=== PATIENT | female | born 1970 | race Caucasian/White ===

== ENCOUNTER 2016-08-24 01:17 | Emergency (ER) | payer OTHER ==
[2016-08-24 02:03] VITALS: BP 127/60
[2016-08-24] MEDS ORDERED: FENTANYL CITRATE INJ/PF 100 MCG/2 ML AMPUL IV ONE (02:36)
[2016-08-24] MEDS ORDERED: ONDANSETRON HCL INJ/PF 4 MG/2 ML SDV IV ONE (02:36)
--- NOTE | 2016-08-24 02:39 | ER Document Report ---
ED General - General Chief Complaint: Abdominal Pain Stated Complaint: VOMITING Time Seen by Provider: 08/24/16 02:30 Notes: Patient is a 46-year-old female who presents for recurrent right upper quadrant abdominal pain. Patient says that she has had several episodes since May 03 this year. She says they usually occur at night. It did not occur directly after eating. Pain is always right upper quadrant and she feels nauseous. She sometimes vomits. Tonight she had pizza at 6:30 PM. She woke up tonight with the pain and did vomit once. She has seen [facility] ER. She says she has had blood work and ultrasound performed. She also saw her primary care doctor. Her primary care doctor told her that if she has the pain to come to the ER for a CT scan and HIDA scan. Patient says that her primary care doctor is not referred her to a surgeon and has not arranged for the HIDA scan herself. TRAVEL OUTSIDE OF THE [place] IN LAST 30 DAYS: No - Related Data Allergies/Adverse Reactions: No Known Allergies Allergy (Unverified 08/24/16 03:02) Past Medical History - Social History Smoking Status: Unknown if Ever Smoked Frequency of alcohol use: None Drug Abuse: None Family History: Reviewed & Not Pertinent Patient has suicidal ideation: No Patient has homicidal ideation: No Renal/ Medical History: Denies: Hx Peritoneal Dialysis Past Surgical History: Reports: Hx Section, Hx Tubal Ligation - Immunizations Hx Diphtheria, Pertussis, Tetanus Vaccination: Yes Review of Systems - Review of Systems Notes: My Normal Review Basic REVIEW OF SYSTEMS: CONSTITUTIONAL : Denies fever, chills, or sweats. Denies recent illness. CARDIOVASCULAR: Denies chest pain. RESPIRATORY: Denies cough, cold, or chest congestion. Denies shortness of breath, difficulty breathing, or wheezing. GASTROINTESTINAL: RUQ abdominal pain. Vomiting. Denies constipation. Last BM : GENITOURINARY: Denies difficulty urinating, painful urination, burning, frequency, or blood in urine. MUSCULOSKELETAL: Denies neck or back pain or joint pain or swelling. SKIN: Denies rash or skin lesions. NEUROLOGICAL: Denies altered mental status or loss of consciousness. Denies headache. Denies weakness or paralysis or loss of use of either side. Denies problems with gait or speech. Denies sensory or motor loss. ALL OTHER SYSTEMS REVIEWED AND NEGATIVE. Physical Exam - Vital signs Vitals: Temp Pulse Resp BP Pulse Ox 97.4 F 77 18 127/60 H 98 08/24/16 01:59 08/24/16 01:59 08/24/16 01:59 08/24/16 01:59 08/24/16 01:59 - Notes Notes: General Appearance: Well nourished, alert, cooperative, no acute distress, moderate obvious discomfort. Vitals: reviewed, See vital signs table. Head: no swelling or tenderness to the head Eyes: PERRL, EOMI, Conjuctiva clear Mouth: No decreasd moisture Neck: Supple, no neck tenderness, No thyromegaly Lungs: No wheezing, No rales, No rhonci, No accessory muscle use, good air exchange bilaterally. Heart: Normal rate, Regular rythm, No murmur, no rub Abdomen: Normal BS, soft, No rigidity, mild to moderate right upper quadrant abdominal tenderness to palpation, No guarding, no rebound, no abdominal masses , no organomegaly Extremities: strength 5/5 in all extremities, good pulses in all extremities, no swelling or tenderness in the extremities, no edema. Skin: warm, dry, appropriate color, no rash Neuro: speech clear, oriented x 3, normal affect, responds appropriately to questions. Course - Vital Signs Vital signs: Temp Pulse Resp BP Pulse Ox 97.4 F 77 18 127/60 H 98 08/24/16 01:59 08/24/16 01:59 08/24/16 01:59 08/24/16 01:59 08/24/16 01:59 - Laboratory Result Diagrams: 08/24/16 02:50 08/24/16 02:50 Laboratory results interpreted by me: 08/24/16 02:50 AST 54 H Lipase 388.8 H - Transfer of Care Notes: 08/24/16 06:24 Patient's pain and nausea is improved. Her ultrasound does show gallstones. She has just a very slight liver enzyme elevation and a very slight lipase elevation. There is no gallbladder duct dilatation. I informed the patient and her that she does not have signs of a gallbladder infection at this time; however, she most likely does need to have elective cholecystectomy. I will refer her to the surgical clinic. I talked to her at length about a fat free diet. I did talk about certain foods that will trigger her gallbladder to contract and cause pain. Informed her she should still return to the ER if she has intractable pain, fevers, vomiting, or feels unwell. Patient agrees with plan and will be discharged home. Dictation of this chart was performed using voice recognition software; therefore, there may be some unintended grammatical errors. Discharge - Discharge Clinical Impression: Cholelithiasis Qualifiers: Cholelithiasis location: gallbladder Cholecystitis presence: without cholecystitis Biliary obstruction: without biliary obstruction Qualified Code(s) : K80.20 - Calculus of gallbladder without cholecystitis without obstruction Condition: Good Disposition: HOME, SELF-CARE Additional Instructions: ABDOMINAL PAIN: There are many causes of abdominal pain. Pain can mean a serious problem requiring surgery (such as appendicitis). It can also be an innocent problem that goes away on its own (such as a viral infection). Often, time must pass to determine the cause of pain. The physician does not feel that hospitalization is necessary, at present. Things may change within the next 24 hours. Call the doctor or come back for re- examination if any problems occur, such as: (1) Pain that becomes more severe, steady, or becomes concentrated in one specific area. Also, pain that is more severe with movement or coughing. (2) Vomiting that persists or becomes more frequent. (3) Blood in the vomitus, urine, or bowel movements. Blood in the stool may have a tarry or black appearance. (4) Shaking chills or fever greater than 100 degrees F. (5) The abdomen becomes more distended or swollen. (6) Bowel movements cease. (7) Failure to improve as expected. GALLBLADDER DISEASE: Your evaluation shows evidence of gallbladder disease. The gallbladder is a pouch under the liver which stores bile. Stones, infection, or irritation of the gallbladder cause attacks of pain. Certain foods -- fats in particular -- may provoke attacks. The usual treatment for gallbladder disease is surgical removal of the gallbladder -- called a cholecystectomy. You will be referred to a physician qualified to advise you on the best treatment for your problem. Hospitalization is not necessary. Take clear liquids only until you are painfree. After that, you should stay on a low-fat diet, with frequent SMALL meals. Call the doctor or return at once if you develop severe pain, repeated vomiting, fever, or jaundice (a yellow color in the skin and whites of the eyes) . LOW-FAT DIET: The physician has recommended a low-fat diet. This diet is often used for gallbladder or pancreas problems. Your meals should be high-carbohydrate (potato, apples, noodles, breads, vegetables). Eat fish or skinless chicken (boiled or baked rather than fried) for protein. Beans and peas are good sources of fat-free protein. Soups are usually very low-fat. Don't eat anything fried. Avoid red meats. Avoid most dairy products. Skim milk and non-fat yogurt are OK. Most popular cheeses are very high-fat. Don't add butter or sauces -- use lemon or pepper instead. If you like salads, use one of the new "non-fat" dressings. "Fast Food" is "fat food." There is virtually nothing from a typical fast- food restaurant that you can eat. Fish patties and chicken nuggets are almost always deep-fat fried. "Special Sauces" are mostly fat. ANTINAUSEA MEDICATION: You have been given a medication to suppress nausea and vomiting. This type of medication can be given as a shot, pill, or suppository. It will usually last for many hours. Pills and shots usually last six to eight hours, suppositories last about 12 hours. For the typical illness, only one or two doses of the medication may be necessary. Mild lightheadedness may occur. This type of medicine can cause drowsiness. Do not drive or operate dangerous machinery while under its influence. Do not mix with alcohol. See your doctor at once if you have muscle spasms or tightness, or uncontrollable motions (particularly of the neck, mouth, or jaw). Persistent vomiting or severe lightheadedness should also be evaluated by the physician. FOLLOW-UP CARE: If you have been referred to a physician for follow-up care, call the physician s office for an appointment as you were instructed or within the next two days. If you experience worsening or a significant change in your symptoms, notify the physician immediately or return to the Emergency Department at any time for re-evaluation. Please call Dr. Parekh's office to arrange for an appointment. avoid all fatty foods. Please return to the ER immediately if you have intractable pain, recurrent vomiting, fevers, or feel unwell. Prescriptions: Ondansetron [Zofran Odt 4 mg Tablet] 1 tab PO Q4H PRN #15 tab.rapdis PRN Reason: For Nausea/Vomiting Forms: Return to Work Referrals: ANTONIA MCHUGH NP [Primary Care Provider] - Follow up as needed JACKIE PAREKH MD [ACTIVE STAFF] - Follow up in 3-5 days
[2016-08-24 03:05] LABS: ABSOLUTE EOSINOPHILS # (AUTO) 0.2 10^3/uL (0.0-0.6); ABSOLUTE LYMPHOCYTES (AUTO) 1.6 10^3/uL (0.5-4.7); ABSOLUTE MONOCYTES (AUTO) 0.5 10^3/uL (0.1-1.4); ABSOLUTE NEUT (AUTO) 6.8 10^3/uL (1.7-8.2); BASOPHILS % (AUTO) 0.3 % (0-2); EOSINOPHILS % (AUTO) 1.9 % (0-6); HEMATOCRIT 37.5 % (36.0-47.0); HEMOGLOBIN 12.6 g/dL (12.0-15.5); HGB HCT DIFFERENCE 0.3; MEAN CORPUSCULAR HEMOGLOBIN 29.8 pg (27.0-33.4); MEAN CORPUSCULAR HGB CONC 33.7 g/dL (32.0-36.0); MEAN CORPUSCULAR VOLUME 89 fl (80-97); MONOCYTES % (AUTO) 5.4 % (3-13); RED BLOOD COUNT 4.24 10^6/uL (3.72-5.28); RED CELL DISTRIBUTION WIDTH 13.3 % (11.5-14.0); SEGMENTED NEUTROPHILS % (AUTO) 74.4 % (42-78); WHITE BLOOD COUNT 9.1 10^3/uL (4.0-10.5)
[2016-08-24 03:20] LABS: ALANINE AMINOTRANSFERASE 36 U/L (9-52); ALBUMIN 3.8 g/dL (3.5-5.0); ALKALINE PHOSPHATASE 79 U/L (38-126); ANION GAP 9 (5-19); ASPARTATE AMINO TRANSFERASE 54 U/L (14-36); BILIRUBIN,DIRECT 0.4 mg/dL (0.0-0.4); BILIRUBIN,TOTAL 1.1 mg/dL (0.2-1.3); BLOOD UREA NITROGEN 10 mg/dL (7-20); CALCIUM 9.3 mg/dL (8.4-10.2); CARBON DIOXIDE 28 mmol/L (22-30); CHLORIDE 103 mmol/L (98-107); CREATININE RESULT 0.69 mg/dL (0.52-1.25); GLUCOSE 100 mg/dL (75-110); LIPASE 388.8 U/L (23-300); POTASSIUM 4.3 mmol/L (3.6-5.0)
== END 2016-08-24 05:17 | disposition home or self-care (01) ==
LOC: ER 01:17
DX: K80.20 Calculus of gallbladder without cholecystitis without obstruction (principal); R10.9 Unspecified abdominal pain; R10.11 Right upper quadrant pain
CPT/HCPCS: 99284; 96374; 96375; 36415; 83690; 85025; 80053; 76705; 93976; J3010; J2405

== ENCOUNTER 2016-09-02 05:54 | Inpatient (IN) | payer OTHER ==
[2016-09-02] MEDS ORDERED: FENTANYL CITRATE INJ/PF 100 MCG/2 ML AMPUL IV ONE (07:55)
--- NOTE | 2016-09-02 07:56 | ER Document Report ---
ED GI/ - General Chief Complaint: Abdominal Pain Stated Complaint: ABDOMINAL PAIN Time Seen by Provider: 09/02/16 07:28 Mode of Arrival: Ambulatory Information source: Patient Notes: Patient reports a history of cholelithiasis and states she developed right upper quadrant abdominal pain around 4 this morning. Patient complains of nausea, without any vomiting. Patient does report diarrhea yesterday but none today. Patient denies any urinary symptoms. TRAVEL OUTSIDE OF THE [place] IN LAST 30 DAYS: No - HPI Patient complains to provider of: Abdominal pain, Diarrhea. No: Vomiting Onset: This morning Timing/Duration: Sudden Quality of pain: Sharp Pain Level: 5 Location: RUQ Vaginal bleeding (Compared to normal period): None Associated symptoms: Diarrhea, Nausea. denies: Chest pain, Loss of appetite, Urinary hesitancy, Urinary frequency, Urinary retention, Urinary urgency, Vomiting Exacerbated by: Denies Relieved by: Denies Similar symptoms previously: Yes Recently seen / treated by doctor: No - Related Data Allergies/Adverse Reactions: No Known Allergies Allergy (Unverified 08/24/16 03:02) Home Medications: Current Home Medications Alprazolam [Xanax] 1 mg PO BIDP PRN 09/02/16 [History] Esomeprazole Mag Trihydrate [Nexium] 40 mg PO DAILY 09/02/16 [History] Naltrexone HCl [Revia] 50 mg PO DAILY 09/02/16 [History] Zolpidem Tartrate [Ambien] 10 mg PO QHS 09/02/16 [History] Past Medical History - General Information source: Patient - Social History Smoking Status: Never Smoker Frequency of alcohol use: None Drug Abuse: None Occupation: manager [employer] Lives with: Family Family History: Reviewed & Not Pertinent Patient has suicidal ideation: No Patient has homicidal ideation: No - Medical History Medical History: Negative Renal/ Medical History: Denies: Hx Peritoneal Dialysis Past Surgical History: Reports: Hx Section, Hx Tubal Ligation - Immunizations Hx Diphtheria, Pertussis, Tetanus Vaccination: Yes Review of Systems - Review of Systems Constitutional: No symptoms reported. denies: Fever, Recent illness EENT: No symptoms reported Cardiovascular: No symptoms reported. denies: Chest pain Respiratory: No symptoms reported. denies: Cough, Short of breath Gastrointestinal: Abdominal pain, Diarrhea, Nausea. denies: Vomiting Genitourinary: No symptoms reported. denies: Dysuria, Flank pain Female Genitourinary: No symptoms reported Musculoskeletal: No symptoms reported Skin: No symptoms reported Hematologic/Lymphatic: No symptoms reported Neurological/Psychological: No symptoms reported Physical Exam - Vital signs Vitals: Temp Pulse Resp BP Pulse Ox 97.3 F 94 18 120/86 H 99 09/02/16 05:56 09/02/16 05:56 09/02/16 05:56 09/02/16 05:56 09/02/16 05:56 - General General appearance: Appears well, Alert In distress: None - HEENT Head: Normocephalic, Atraumatic Eyes: Normal Conjunctiva: Normal Nasal: Normal Mouth/Lips: Normal Neck: Normal, Supple - Respiratory Respiratory status: No respiratory distress Chest status: Nontender Breath sounds: Normal. No: Rales, Rhonchi, Stridor, Wheezing Chest palpation: Normal - Cardiovascular Rhythm: Regular Heart sounds: S1 appreciated, S2 appreciated Murmur: No - Abdominal Inspection: Normal Distension: No distension Bowel sounds: Normal Tenderness: Tender - RUQ Organomegaly: No organomegaly - Back Back: Normal, Nontender. No: CVA tenderness - Extremities General upper extremity: Normal inspection, Normal ROM General lower extremity: Normal inspection, Normal ROM - Neurological Neuro grossly intact: Yes Cognition: Normal [place] Coma Scale Eye Opening: Spontaneous Eleni Coma Scale Verbal: Oriented [place] Coma Scale Motor: Obeys Commands [place] Coma Scale Total: 15 - Psychological Associated symptoms: Normal affect, Normal mood - Skin Skin Temperature: Warm Skin Moisture: Dry Skin Color: Normal Course - Re-evaluation Re-evalutation: 09/02/16 07:56 Patient insistent that she has not been on naltrexone for the past week. Patient states she was only prescribed that to help with carb craving for her primary doctor. Patient denies any alcohol or opioid substance abuse. 09/02/16 08:49 pt denies any pain relief after fentanyl, additional medication ordered 09/02/16 10:01 pt reports pain relief after additional pain medication. Consulted with dr Montgomery, test results reviewed, recommends repeating ultrasound at this time given upward trending lipase test result. 09/02/16 12:[address] Quinonez regarding pt presentation and US report. Recommends medical admission for gall stone pancreatitis with surgical consult. consulted with dr Coyle who agrees to accept pt for admission Dr Montgomery updated and agrees with plan of care. 09/02/16 12:49 pt agrees with plan of care, pt c/o mild BRERY and requests medication - Vital Signs Vital signs: Temp Pulse Resp BP Pulse Ox 97.5 F 75 16 106/60 97 09/02/16 12:52 09/02/16 12:52 09/02/16 12:52 09/02/16 12:52 09/02/16 12:52 - Laboratory Result Diagrams: 09/02/16 08:21 09/02/16 08:21 Laboratory results interpreted by me: 09/02/16 09/02/16 08:21 08:21 AST 59 H C-Reactive Protein 17.8 H Cholesterol 223.40 H LDL Cholesterol Direct 137 H Lipase 474.8 H Labs- Entire Visit 09/02/16 09/02/16 09/02/16 07:44 08:21 08:21 WBC 8.2 RBC 4.43 Hgb 13.4 Hct 40.1 MCV 91 MCH 30.3 MCHC 33.5 RDW 13.3 Plt Count 208 Seg Neutrophils % 69.6 Lymphocytes % 23.1 Monocytes % 5.3 Eosinophils % 1.8 Basophils % 0.2 Absolute Neutrophils 5.7 Absolute Lymphocytes 1.9 Absolute Monocytes 0.4 Absolute Eosinophils 0.1 Absolute Basophils 0.0 Sodium 143.3 Potassium 4.5 Chloride 105 Carbon Dioxide 27 Anion Gap 11 BUN 14 Creatinine 0.66 Est GFR ( Amer) > 60 Est GFR (Non-Af Amer) > 60 Glucose 86 Calcium 9.1 Total Bilirubin 0.8 Direct Bilirubin 0.2 Indirect Bilirubin Not Reportable Neonat Total Bilirubin Not Reportable AST 59 H ALT 40 Alkaline Phosphatase 85 Total Protein 6.7 Albumin 3.9 Lipase 474.8 H Urine Color STRAW Urine Appearance CLEAR Urine pH 7.0 Ur Specific [place] 1.009 Urine Protein NEGATIVE Urine Glucose (UA) NEGATIVE Urine Ketones NEGATIVE Urine Blood NEGATIVE Urine Nitrite NEGATIVE Urine Bilirubin NEGATIVE Urine Urobilinogen NEGATIVE Ur Leukocyte Esterase NEGATIVE Squamous Epi Cells Auto <1 Urine Ascorbic Acid NEGATIVE Urine HCG, Qual NEGATIVE - Diagnostic Test Radiology reviewed: Reports reviewed - reviewed previous ED ultrasound report Discharge - Discharge Clinical Impression: Elevated lipase, Hx of gallstones Abdominal pain Qualifiers: Abdominal location: right upper quadrant Qualified Code(s): R10.11 - Right upper quadrant pain Admitting Provider: Hospitalist
[2016-09-02 08:09] LABS: APPEARANCE,URINE CLEAR; BILIRUBIN,URINE NEGATIVE (NEGATIVE); GLUCOSE, URINE NEGATIVE (NEGATIVE); KETONES,URINE NEGATIVE (NEGATIVE); LEUKOCYTE ESTERASE,URINE NEGATIVE (NEGATIVE); NITRITE,URINE NEGATIVE (NEGATIVE); PROTEIN,URINE NEGATIVE (NEGATIVE); URINE SPECIFIC GRAVITY 1.009; UROBILINOGEN,URINE NEGATIVE mg/dL (<2.0)
[2016-09-02 08:32] LABS: ABSOLUTE EOSINOPHILS # (AUTO) 0.1 10^3/uL (0.0-0.6); ABSOLUTE LYMPHOCYTES (AUTO) 1.9 10^3/uL (0.5-4.7); ABSOLUTE MONOCYTES (AUTO) 0.4 10^3/uL (0.1-1.4); ABSOLUTE NEUT (AUTO) 5.7 10^3/uL (1.7-8.2); BASOPHILS % (AUTO) 0.2 % (0-2); EOSINOPHILS % (AUTO) 1.8 % (0-6); HEMATOCRIT 40.1 % (36.0-47.0); HEMOGLOBIN 13.4 g/dL (12.0-15.5); HGB HCT DIFFERENCE 0.1; LYMPHOCYTES % (AUTO) 23.1 % (13-45); MEAN CORPUSCULAR HEMOGLOBIN 30.3 pg (27.0-33.4); MEAN CORPUSCULAR HGB CONC 33.5 g/dL (32.0-36.0); MEAN CORPUSCULAR VOLUME 91 fl (80-97); MONOCYTES % (AUTO) 5.3 % (3-13); RED BLOOD COUNT 4.43 10^6/uL (3.72-5.28); RED CELL DISTRIBUTION WIDTH 13.3 % (11.5-14.0); SEGMENTED NEUTROPHILS % (AUTO) 69.6 % (42-78); WHITE BLOOD COUNT 8.2 10^3/uL (4.0-10.5)
[2016-09-02 08:45] LABS: ALANINE AMINOTRANSFERASE 40 U/L (9-52); ALBUMIN 3.9 g/dL (3.5-5.0); ALKALINE PHOSPHATASE 85 U/L (38-126); ANION GAP 11 (5-19); ASPARTATE AMINO TRANSFERASE 59 U/L (14-36); BILIRUBIN,DIRECT 0.2 mg/dL (0.0-0.4); BILIRUBIN,TOTAL 0.8 mg/dL (0.2-1.3); BLOOD UREA NITROGEN 14 mg/dL (7-20); CALCIUM 9.1 mg/dL (8.4-10.2); CARBON DIOXIDE 27 mmol/L (22-30); CHLORIDE 105 mmol/L (98-107); CREATININE RESULT 0.66 mg/dL (0.52-1.25); GLUCOSE 86 mg/dL (75-110); LIPASE 474.8 U/L (23-300); POTASSIUM 4.5 mmol/L (3.6-5.0); SODIUM 143.3 mmol/L (137-145); TOTAL PROTEIN 6.7 g/dL (6.3-8.2)
[2016-09-02] MEDS ORDERED: HYDROMORPHONE HCL INJ/PF 2 MG/ML AMPULE IV ONE (08:47)
--- NOTE | 2016-09-02 12:24 | RADIOLOGY REPORT (SQ) ---
EXAM DESCRIPTION: U/S ABDOMEN LIMITED W/O DOP COMPLETED DATE/TIME: 09/02/2016 12:03 pm REASON FOR STUDY: RUQ pain, hx cholelithiasis COMPARISON: ABDOMINAL ULTRASOUND 08/24/2016 TECHNIQUE: Dynamic and static grayscale images acquired of the abdomen and recorded on PACS. Additio nal selected color Doppler and spectral images recorded. LIMITATIONS: Midline bowel gas FINDINGS: PANCREAS: Midline pancreas grossly unremarkable LIVER: No masses. Echotexture normal. LIVER VASCULATURE: Normal directional flow of the main portal vein and hepatic veins. GALLBLADDER: Tiny polyps versus stones seen in the dependent portion of the gallbladder on ultrasound 08/24/2016 are no longer identified. Currently, there are no stones, gallbladder wall thickening or pericholecystic fluid. ULTRASOUND-DETECTED ULLOA'S SIGN: Negative. INTRAHEPATIC DUCTS AND COMMON DUCT: 4 mm the lucretia hepatis. Distal most common duct not well seen. INFERIOR VENA CAVA: Normal flow. AORTA: No aneurysm. RIGHT KIDNEY: Normal size. Normal echogenicity. No solid or suspicious masses. No hydronephrosis. No calcifications. PERITONEAL AND RIGHT PLEURAL SPACE: No ascites or effusions. OTHER: No other significant findings. IMPRESSION: Tiny calculi seen in the gallbladder on 08/24/2016 are no longer identified. Common bile duct distally obscured by right upper quadrant bowel gas. Common bile duct at the lucretia hepatis 4 mm in diameter No definite fluid identified around the pancreatic head. Pancreatic body and tail not well seen. TECHNICAL DOCUMENTATION: JOB ID: [id number] [employer]- All Rights Reserved
[2016-09-02] MEDS ORDERED: ACETAMINOPHEN 325 MG TABLET PO ONE (12:49)
[2016-09-02] MEDS ORDERED: ONDANSETRON HCL INJ/PF 4 MG/2 ML SDV IV PRN (13:37)
--- NOTE | 2016-09-02 13:50 | PDOC H&P ---
History of Present Illness Admission Date/PCP: JACKIE MCHUGH MD Patient complains of: RUQ abd pain History of Present Illness: TIFFANIE ZAPATA is a 46 year old female presents from home to the ED with sudden onset of sharp, stabbing RUQ radiating into Rt flank and asct'd with N/V/ D, worse with deep breath and certain positions, no alleviating factors until given dilaudid in the ED and is now pain free and resting comfortably. she was dx'd with cholelithiasis just last week and scheduled to have cholecystectomy but describes this as her "eighth" attack since 04/2016 and occuring more frequently and much more intense with each episode and this in spite of making the necessary dietary and lifestyle changes as instructed by surgery. eval by u/s shows multiple tiny gallstones, today's exam shows no stones, CBD 4mm but GB and pancreas not well visualized. Her LFTs are minimally elevated, lipase in the 400's and we were asked to admit for further evaluatino and management of presumptive gallstone pancreatitis. Past Medical History Cardiac Medical History: Reports: None Pulmonary Medical History: Reports: None Endocrine Medical History: Reports: None Renal/ Medical History: Reports: None GI Medical History: Reports: Gastroesophageal Reflux Disease Past Surgical History Past Surgical History: Reports: Section, Tubal Ligation Social History Lives with: Family Smoking Status: Never Smoker - Advance Directive Resuscitation Status: Full Code Family History Family History: Other - all female members of her family lost their GBs Parental Family History Reviewed: Yes Children Family History Reviewed: Yes Sibling(s) Family History Reviewed.: Yes Medication/Allergy Allergies/Adverse Reactions: No Known Allergies Allergy (Unverified 08/24/16 03:02) Review of Systems Constitutional: PRESENT: weight loss - 50# intentional weight loss since 2015. ABSENT: chills, fever(s), headache(s), weight gain Eyes: ABSENT: visual disturbances Ears: ABSENT: hearing changes Cardiovascular: ABSENT: chest pain, dyspnea on exertion, edema, orthropnea, palpitations Respiratory: ABSENT: cough, hemoptysis Gastrointestinal: PRESENT: as per HPI, abdominal pain, bloating, diarrhea, nausea, vomiting. ABSENT: constipation, hematemesis, hematochezia Genitourinary: ABSENT: dysuria, hematuria Musculoskeletal: ABSENT: joint swelling Integumentary: ABSENT: rash, wounds Neurological: ABSENT: abnormal gait, abnormal speech, confusion, dizziness, focal weakness, syncope Psychiatric: ABSENT: anxiety, depression, homidical ideation, suicidal ideation Endocrine: ABSENT: cold intolerance, heat intolerance, polydipsia, polyuria Hematologic/Lymphatic: ABSENT: easy bleeding, easy bruising Physical Exam Vital Signs: Temp Pulse Resp BP Pulse Ox 97.5 F 75 16 106/60 97 09/02/16 12:52 09/02/16 12:52 09/02/16 12:52 09/02/16 12:52 09/02/16 12:52 Intake & Output 09/01/16 09/02/16 09/03/16 06:59 06:59 06:59 Weight 86.183 kg General appearance: PRESENT: no acute distress, obese, well-developed, well- nourished Head exam: PRESENT: atraumatic, normocephalic Eye exam: PRESENT: EOMI. ABSENT: conjunctival injection Mouth exam: PRESENT: moist, neck supple Neck exam: PRESENT: full ROM. ABSENT: tenderness Respiratory exam: PRESENT: clear to auscultation [id number]. ABSENT: accessory muscle use Cardiovascular exam: PRESENT: RRR. ABSENT: tachycardia Pulses: PRESENT: normal carotid pulses, normal radial pulses GI/Abdominal exam: PRESENT: hypoactive bowel sounds, soft, tenderness - mild tender RUQ with deep palpation only. ABSENT: ascites, distended, guarding, rigid Extremities exam: ABSENT: joint swelling, pedal edema Musculoskeletal exam: PRESENT: full ROM. ABSENT: tenderness Neurological exam: PRESENT: alert, awake, oriented to person, oriented to place , oriented to time, oriented to situation Psychiatric exam: PRESENT: appropriate affect, normal mood Skin exam: PRESENT: warm. ABSENT: dry Results Laboratory Results: 09/02/16 08:21 09/02/16 08:21 09/02/16 09/02/16 09/02/16 07:44 08:21 08:21 WBC 8.2 RBC 4.43 Hgb 13.4 Hct 40.1 MCV 91 MCH 30.3 MCHC 33.5 RDW 13.3 Plt Count 208 Seg Neutrophils % 69.6 Lymphocytes % 23.1 Monocytes % 5.3 Eosinophils % 1.8 Basophils % 0.2 Absolute Neutrophils 5.7 Absolute Lymphocytes 1.9 Absolute Monocytes 0.4 Absolute Eosinophils 0.1 Absolute Basophils 0.0 Sodium 143.3 Potassium 4.5 Chloride 105 Carbon Dioxide 27 Anion Gap 11 BUN 14 Creatinine 0.66 Est GFR ( Amer) > 60 Est GFR (Non-Af Amer) > 60 Glucose 86 Calcium 9.1 Total Bilirubin 0.8 AST 59 H ALT 40 Alkaline Phosphatase 85 Total Protein 6.7 Albumin 3.9 Lipase 474.8 H Urine Color STRAW Urine Appearance CLEAR Urine pH 7.0 Ur Specific [place] 1.009 Urine Protein NEGATIVE Urine Glucose (UA) NEGATIVE Urine Ketones NEGATIVE Urine Blood NEGATIVE Urine Nitrite NEGATIVE Ur Leukocyte Esterase NEGATIVE Impressions: Abdomen Ultrasound 09/02/16 10:00 IMPRESSION: Tiny calculi seen in the gallbladder on 08/24/2016 are no longer identified. Common bile duct distally obscured by right upper quadrant bowel gas. Common bile duct at the lucretia hepatis 4 mm in diameter No definite fluid identified around the pancreatic head. Pancreatic body and tail not well seen. Assessment & Plan - Diagnosis (1) Acute gallstone pancreatitis Is this a current diagnosis for this admission?: YesPlan: worse with cresecendo symptoms. admit for conservative management including IVFs, analgesics and antiemetics, trend CRP as more reliable marker than lipase , trend CMP/CBC. consult riaz for their opinion on timing and urgency of cholecystectomy given her escalating symptoms. I suspect she passed the stone as there is no clear evidence of retained or obstructing stone at present. will ck ct a/p for better detail. we do not have GI available for ERCP at this time, should that become necessary. - Time Time Spent: 50 to 70 Minutes Medications reviewed and adjusted accordingly: Yes Anticipated discharge: Home Within: within 72 hours - Inpatient Certification Medical Necessity: Failure to Improve With Outpatient Therapy, Need Close Monitoring Due to Risk of Patient Decompensation, Need For IV Fluids, Need for Pain Control, Risk of Diagnosis Which Will Require Inpatient Eval/Care/ Monitoring
[2016-09-02 14:09] LABS: C-REACTIVE PROTEIN 17.8 mg/L (<10.0); Direct HDL 53 mg/dL (>40); MAGNESIUM 1.9 mg/dL (1.6-2.3); PHOSPHORUS 3.7 mg/dL (2.5-4.5); TRIGLYCERIDES 132 mg/dL (<150)
[2016-09-02 14:18] LABS: DIRECT LDL 137 mg/dL (<100)
[2016-09-02] MEDS: NORMAL SALINE 1000 ML 1,000 ML IV PRN (15:26)
[2016-09-02] MEDS ORDERED: OXYCODONE HCL IR 5 MG TABLET PO PRN (18:10)
--- NOTE | 2016-09-02 18:37 | RADIOLOGY REPORT (SQ) ---
EXAM DESCRIPTION: CT ABD/PELVIS WITH IV ORAL COMPLETED DATE/TIME: 09/02/2016 5:08 pm REASON FOR STUDY: gallstone pancreatitis COMPARISON: Abdominal ultrasound dated 09/02/2016 TECHNIQUE: CT scan of the abdomen and pelvis performed using helical scanning technique with dynamic intravenous contrast injection and oral contrast. Images reviewed with lung, soft tissue, and bone w indows. Reconstructed coronal and sagittal MPR images reviewed. Delayed images for evaluation of the urinary system also acquired. All images stored on PACS. All CT scanners at this facility use dose modulation, iterative reconstruction, and/or weight based d osing when appropriate to reduce radiation dose to as low as reasonably achievable (ALARA). [facility]: Dose Right [facility]: CareDose [facility]: Dose Right [facility]: Teradose 4D [facility]: Poly Adaptive CONTRAST TYPE AND DOSE: 93mL Isovue 370 RENAL FUNCTION: None required. The patient is less than 50 years old. RADIATION DOSE: 32.91mGy. LIMITATIONS: None. FINDINGS: LOWER CHEST: No significant findings. No nodules or infiltrates. LIVER: Normal size. No masses or dilated ducts. SPLEEN: Normal size. No focal lesions. PANCREAS: No masses. No significant calcifications. No adjacent inflammation or peripancreatic fluid collections. Pancreatic duct not dilated. GALLBLADDER: No identified stones by CT criteria. No inflammatory changes to suggest cholecystitis. ADRENAL GLANDS: No significant masses or asymmetry. RIGHT KIDNEY AND URETER: No solid masses. No significant calcifications. No hydronephrosis or hyd roureter. LEFT KIDNEY AND URETER: No solid masses. No significant calcifications. No hydronephrosis or hydr oureter. AORTA AND VESSELS: No aneurysm. No dissection. Renal arteries, SMA, celiac without stenosis. RETROPERITONEUM: No retroperitoneal adenopathy, hemorrhage or masses. BOWEL AND PERITONEAL CAVITY: No masses or inflammatory changes. No free fluid or peritoneal masses. APPENDIX: Normal. PELVIS: No mass or free fluid. Normal bladder. An area of contrast enhancement is identified in the uterus on the arterial phase images most consistent with a uterine fibroid. Other etiologies cannot be completely excluded. Ultrasound may be of value for further evaluation. ABDOMINAL WALL: No masses. No hernias. BONES: No significant or acute findings. OTHER: No other significant finding. IMPRESSION: NO SIGNIFICANT OR ACUTE FINDING IN THE ABDOMEN OR PELVIS ON CT SCAN WITH IV CONTRAST. TECHNICAL DOCUMENTATION: JOB ID: [id number] Quality ID # [id number]: Final reports with documentation of one or more dose reduction techniques (e.g., Au tomated exposure control, adjustment of the mA and/or kV according to patient size, use of iterative reconstruction technique) 2010 [employer]- All Rights Reserved
--- NOTE | 2016-09-02 20:12 | PDOC CONSULTATION ---
History of Present Illness Admission Date/PCP: 09/02/16 13:30 JACKIE MCHUGH MD Patient complains of: Right upper quadrant abdominal pain History of Present Illness: 46-year-old female with known history of small gallstones with multiple episodes of right upper quadrant abdominal pain over the past several months. Patient notes that the pain lasts for several hours at a time but no longer than a day at a time. She denies any jaundice and she denies any fevers or chills. She has had nausea. Pain is usually related with food intake. Although this last episode began late last night. Currently the pain is almost completely resolved. She denies any alcohol abuse history. She has no known history of pancreatitis in the past. Patient came into the ER was noted with abdominal pain however current ultrasound demonstrated no evidence of gallstones although on recent ultrasonography there were small gallstones seen. Patient was noted with mild elevation of her lipase with normal bilirubin and alkaline phosphatase and minimal elevation of transaminase. She denies any shortness of breath. Past Medical History Cardiac Medical History: Reports: None Pulmonary Medical History: Reports: None Endocrine Medical History: Reports: None Renal/ Medical History: Reports: None GI Medical History: Reports: Gastroesophageal Reflux Disease Past Surgical History Past Surgical History: Reports: Section, Tubal Ligation Social History Lives with: Family Smoking Status: Never Smoker Frequency of Alcohol Use: None Hx Recreational Drug Use: No Hx Prescription Drug Abuse: No - Advance Directive Resuscitation Status: Full Code Family History Family History: Reviewed & Not Pertinent Parental Family History Reviewed: No Children Family History Reviewed: No Sibling(s) Family History Reviewed.: No Medication/Allergy Home Medications: Alprazolam [Xanax] 1 mg PO BIDP PRN 09/02/16 Esomeprazole Mag Trihydrate [Nexium] 40 mg PO DAILY 09/02/16 Naltrexone HCl [Revia] 50 mg PO DAILY 09/02/16 Zolpidem Tartrate [Ambien] 10 mg PO QHS 09/02/16 Allergies/Adverse Reactions: No Known Allergies Allergy (Unverified 08/24/16 03:02) Physical Exam Vital Signs: Temp Pulse Resp BP Pulse Ox 97.5 F 66 20 105/59 L 100 09/02/16 17:26 09/02/16 17:26 09/02/16 17:26 09/02/16 17:26 09/02/16 17:26 General appearance: PRESENT: no acute distress, cooperative Eye exam: PRESENT: conjunctiva pink Neck exam: PRESENT: other - Supple, nontender to palpation. Respiratory exam: PRESENT: clear to auscultation yenifer Cardiovascular exam: PRESENT: RRR GI/Abdominal exam: PRESENT: other - Soft, nondistended, very minimal right upper quadrant and epigastric tenderness. Extremities exam: PRESENT: other - No swelling and no tenderness. Neurological exam: PRESENT: alert, awake, oriented to person, oriented to place , oriented to time, oriented to situation Psychiatric exam: PRESENT: appropriate affect Skin exam: PRESENT: normal color Results Impressions: Abdomen/Pelvis CT 09/02/16 00:00 IMPRESSION: NO SIGNIFICANT OR ACUTE FINDING IN THE ABDOMEN OR PELVIS ON CT SCAN WITH IV CONTRAST. Abdomen Ultrasound 09/02/16 10:00 IMPRESSION: Tiny calculi seen in the gallbladder on 08/24/2016 are no longer identified. Common bile duct distally obscured by right upper quadrant bowel gas. Common bile duct at the lucretia hepatis 4 mm in diameter No definite fluid identified around the pancreatic head. Pancreatic body and tail not well seen. Assessment & Plan - Diagnosis (1) Acute gallstone pancreatitis Is this a current diagnosis for this admission?: YesPlan: Likely passage of gallstones into the common bile duct with subsequent passage into the duodenum and resultant pancreatitis that appears to be mild. Will plan laparoscopic cholecystectomy during this admission, likely tomorrow. I have had a long discussion with the patient the risk and benefits of the procedure including risk of the bile duct injury, intestinal injury, bleeding, infection, mistaken diagnosis, postcholecystectomy diarrhea. Patient understands that there is a risk of conversion to an open procedure as well. Will likely do a cholangiogram as well. Keep patient n.p.o. except for ice chips until surgery.
[2016-09-02] MEDS: PANTOPRAZOLE SODIUM 40 MG VIAL IV SCH (23:39)
[2016-09-02] MEDS: ZOLPIDEM TARTRATE 5 MG TABLET PO PRN (23:39)
[2016-09-02] MEDS: ACETAMINOPHEN 325 MG TABLET PO PRN (23:40)
[2016-09-02] MEDS: MORPHINE SULFATE 10 MG/ML INJ IV PRN (23:42)
[2016-09-03] MEDS: MORPHINE SULFATE 10 MG/ML INJ IV PRN ×2 (04:10→17:42)
[2016-09-03 04:59] LABS: ABSOLUTE EOSINOPHILS # (AUTO) 0.2 10^3/uL (0.0-0.6); ABSOLUTE LYMPHOCYTES (AUTO) 2.8 10^3/uL (0.5-4.7); ABSOLUTE MONOCYTES (AUTO) 0.4 10^3/uL (0.1-1.4); ABSOLUTE NEUT (AUTO) 3.1 10^3/uL (1.7-8.2); BASOPHILS % (AUTO) 0.3 % (0-2); EOSINOPHILS % (AUTO) 2.8 % (0-6); HEMATOCRIT 35.7 % (36.0-47.0); HGB HCT DIFFERENCE 0.3; LYMPHOCYTES % (AUTO) 43.5 % (13-45); MEAN CORPUSCULAR HEMOGLOBIN 29.8 pg (27.0-33.4); MEAN CORPUSCULAR HGB CONC 33.5 g/dL (32.0-36.0); MEAN CORPUSCULAR VOLUME 89 fl (80-97); MONOCYTES % (AUTO) 5.7 % (3-13); RED BLOOD COUNT 4.02 10^6/uL (3.72-5.28); RED CELL DISTRIBUTION WIDTH 13.3 % (11.5-14.0); SEGMENTED NEUTROPHILS % (AUTO) 47.7 % (42-78); WHITE BLOOD COUNT 6.5 10^3/uL (4.0-10.5)
[2016-09-03 05:13] LABS: ALANINE AMINOTRANSFERASE 39 U/L (9-52); ALBUMIN 3.2 g/dL (3.5-5.0); ALKALINE PHOSPHATASE 77 U/L (38-126); ANION GAP 7 (5-19); ASPARTATE AMINO TRANSFERASE 31 U/L (14-36); BILIRUBIN,DIRECT 0.2 mg/dL (0.0-0.4); BILIRUBIN,TOTAL 0.9 mg/dL (0.2-1.3); BLOOD UREA NITROGEN 6 mg/dL (7-20); C-REACTIVE PROTEIN 17.2 mg/L (<10.0); CALCIUM 8.6 mg/dL (8.4-10.2); CARBON DIOXIDE 25 mmol/L (22-30); CHLORIDE 108 mmol/L (98-107); CREATININE RESULT 0.53 mg/dL (0.52-1.25); GLUCOSE 80 mg/dL (75-110); LIPASE 62.3 U/L (23-300); SODIUM 140.4 mmol/L (137-145); TOTAL PROTEIN 6.1 g/dL (6.3-8.2)
[2016-09-03 05:28] LABS: POTASSIUM 3.5 mmol/L (3.6-5.0)
[2016-09-03] MEDS: PANTOPRAZOLE SODIUM 40 MG VIAL IV SCH ×2 (09:07→21:19)
[2016-09-03] MEDS ORDERED: BUPIVACAINE HCL 0.25 % INJ/PF (2.5 MG/1 ML) 30 ML VIAL ONE (09:42)
[2016-09-03] MEDS ORDERED: CEFAZOLIN INJ 1 GM VIAL ONE ×2 (11:10→11:12)
--- NOTE | 2016-09-03 11:25 | PDOC PROGRESS REPORT ---
Subjective Progress Note for:: 09/03/16 Subjective:: reason for visit: f/u gallstone pancreatitis hospital course: TIFFANIE ZAPATA is a 46 year old female presents from home to the ED with sudden onset of sharp, stabbing RUQ radiating into Rt flank and asct'd with N/V/D, worse with deep breath and certain positions, no alleviating factors until given dilaudid in the ED and is now pain free and resting comfortably. she was dx'd with cholelithiasis just last week and scheduled to have cholecystectomy 09/26 but describes this as her "eighth" attack since 2016 and occuring more frequently and much more intense with each episode and this in spite of making the necessary dietary and lifestyle changes as instructed by surgery. eval 08/24 by u/s shows multiple tiny gallstones, today' s exam shows no stones, CBD 4mm but GB and pancreas not well visualized. Her LFTs are minimally elevated, lipase in the 400's and we were asked to admit for further evaluatino and management of presumptive gallstone pancreatitis. Surgery has evaluated and elected to proceed with cholecystectomy Thursday. overall she is improved, pain is well controlled, still nauseous but no more vomiting. ROS: denies fevers/chills, cough with phlegm, chest pain, diarrhea, rash, total 10systems reviewed remaining systems negative Physical Exam Vital Signs: Temp Pulse Resp BP Pulse Ox 97.6 F 71 16 95/60 L 99 09/03/16 08:27 09/03/16 08:27 09/03/16 08:27 09/03/16 08:27 09/03/16 08:27 Intake & Output 09/02/16 09/03/16 09/04/16 06:59 06:59 06:59 Intake Total 0 Output Total 400 Balance -400 Weight 85.1 kg General appearance: PRESENT: no acute distress, obese, well-developed, well- nourished Head exam: PRESENT: atraumatic, normocephalic Eye exam: PRESENT: EOMI. ABSENT: scleral icterus Mouth exam: PRESENT: moist, neck supple Neck exam: ABSENT: tenderness, tracheal deviation Respiratory exam: PRESENT: clear to auscultation yenifer. ABSENT: unlabored Cardiovascular exam: PRESENT: RRR. ABSENT: systolic murmur Pulses: PRESENT: normal radial pulses, normal dorsalis pedis pul GI/Abdominal exam: PRESENT: normal bowel sounds, soft, tenderness - mild epigastric and RUQ with only deep palpation Musculoskeletal exam: PRESENT: ambulatory, full ROM Neurological exam: PRESENT: alert, awake, oriented to person, oriented to place , oriented to time Psychiatric exam: PRESENT: appropriate affect, normal mood Skin exam: PRESENT: warm. ABSENT: dry Results Laboratory Results: 09/03/16 04:22 09/03/16 04:22 09/03/16 09/03/16 04:22 04:22 WBC 6.5 RBC 4.02 Hgb 12.0 Hct 35.7 L MCV 89 MCH 29.8 MCHC 33.5 RDW 13.3 Plt Count 164 Seg Neutrophils % 47.7 Lymphocytes % 43.5 Monocytes % 5.7 Eosinophils % 2.8 Basophils % 0.3 Absolute Neutrophils 3.1 Absolute Lymphocytes 2.8 Absolute Monocytes 0.4 Absolute Eosinophils 0.2 Absolute Basophils 0.0 Sodium 140.4 Potassium 3.5 L D Chloride 108 H Carbon Dioxide 25 Anion Gap 7 BUN 6 L Creatinine 0.53 Est GFR ( Amer) > 60 Est GFR (Non-Af Amer) > 60 Glucose 80 Calcium 8.6 Total Bilirubin 0.9 AST 31 ALT 39 Alkaline Phosphatase 77 C-Reactive Protein 17.2 H Total Protein 6.1 L Albumin 3.2 L Lipase 62.3 Impressions: Abdomen/Pelvis CT 09/02/16 00:00 IMPRESSION: NO SIGNIFICANT OR ACUTE FINDING IN THE ABDOMEN OR PELVIS ON CT SCAN WITH IV CONTRAST. Abdomen Ultrasound 09/02/16 10:00 IMPRESSION: Tiny calculi seen in the gallbladder on 08/24/2016 are no longer identified. Common bile duct distally obscured by right upper quadrant bowel gas. Common bile duct at the lucretia hepatis 4 mm in diameter No definite fluid identified around the pancreatic head. Pancreatic body and tail not well seen. Assessment & Plan - Diagnosis (1) Acute gallstone pancreatitis Is this a current diagnosis for this admission?: YesPlan: improved; it appears the stone has passed into the small bowel but intra- operative cholangiogram will confirm (2) Cholelithiasis Is this a current diagnosis for this admission?: YesPlan: for cholecystectomy later today per my discussion with dr flores covering surgeon - Time Time Spent with patient: 25-34 minutes
[2016-09-03] MEDS ORDERED: FENTANYL CITRATE INJ/PF 100 MCG/2 ML AMPUL ONE ×3 (11:27→13:41)
[2016-09-03] MEDS ORDERED: MIDAZOLAM 2 MG/2 ML INJ ONE (11:28)
[2016-09-03] MEDS ORDERED: MORPHINE SULFATE 10 MG/ML INJ ONE (11:28)
[2016-09-03] MEDS ORDERED: ONDANSETRON HCL INJ/PF 4 MG/2 ML SDV ONE (11:28)
[2016-09-03] MEDS ORDERED: DEXAMETHASONE SOD PHOSPHATE INJ 4 MG/1 ML VIAL ONE (11:28)
[2016-09-03] MEDS ORDERED: PROPOFOL INJ 200 MG/20 ML VIAL IV ONE (11:28)
[2016-09-03] MEDS ORDERED: MORPHINE SULFATE 10 MG/ML INJ IV PRN (13:03)
[2016-09-03] MEDS ORDERED: MEPERIDINE HCL/PF INJ 25 MG/1 ML DISP.SYRIN IV PRN (13:03)
[2016-09-03] MEDS ORDERED: ONDANSETRON HCL INJ/PF 4 MG/2 ML SDV IV PRN (13:03)
[2016-09-03] MEDS ORDERED: DIPHENHYDRAMINE HCL 50 MG/ML VIAL IV PRN (13:03)
[2016-09-03] MEDS ORDERED: FENTANYL CITRATE INJ/PF 100 MCG/2 ML AMPUL IV PRN ×3 (13:03)
[2016-09-03] MEDS ORDERED: HYDROMORPHONE HCL INJ/PF 2 MG/ML AMPULE IV PRN (13:50)
[2016-09-03] MEDS ORDERED: OXYCODONE-ACETAMINOPHEN 5-325 MG TABLET PO PRN (13:51)
[2016-09-03] MEDS ORDERED: ACETAMINOPHEN 100 ML IV ONE (14:00)
[2016-09-03] MEDS: ONDANSETRON HCL INJ/PF 4 MG/2 ML SDV IV PRN (17:43)
[2016-09-03] MEDS: CEFAZOLIN 1 GM/D5W RTU 1 GM/50 ML RTUPB IV SCH (17:44)
[2016-09-03] MEDS: ZOLPIDEM TARTRATE 5 MG TABLET PO PRN (21:19)
[2016-09-03] MEDS: NORMAL SALINE 1000 ML 1,000 ML IV PRN (21:41)
[2016-09-03] MEDS ORDERED: ONDANSETRON HCL INJ/PF 4 MG/2 ML SDV IV ONE (22:00)
[2016-09-04] MEDS: CEFAZOLIN 1 GM/D5W RTU 1 GM/50 ML RTUPB IV SCH ×3 (01:16→17:49)
[2016-09-04 05:05] LABS: HEMATOCRIT 34.8 % (36.0-47.0); HEMOGLOBIN 11.9 g/dL (12.0-15.5); HGB HCT DIFFERENCE 0.9; MEAN CORPUSCULAR HEMOGLOBIN 30.7 pg (27.0-33.4); MEAN CORPUSCULAR HGB CONC 34.2 g/dL (32.0-36.0); MEAN CORPUSCULAR VOLUME 90 fl (80-97); RED BLOOD COUNT 3.88 10^6/uL (3.72-5.28); RED CELL DISTRIBUTION WIDTH 13.2 % (11.5-14.0); WHITE BLOOD COUNT 10.1 10^3/uL (4.0-10.5)
[2016-09-04 05:25] LABS: ALANINE AMINOTRANSFERASE 52 U/L (9-52); ALBUMIN 3.3 g/dL (3.5-5.0); ALKALINE PHOSPHATASE 70 U/L (38-126); ASPARTATE AMINO TRANSFERASE 40 U/L (14-36); BILIRUBIN,DIRECT 0.3 mg/dL (0.0-0.4); BILIRUBIN,TOTAL 0.9 mg/dL (0.2-1.3); LIPASE 37.6 U/L (23-300); TOTAL PROTEIN 6.1 g/dL (6.3-8.2)
[2016-09-04] MEDS: ACETAMINOPHEN 325 MG TABLET PO PRN (06:42)
[2016-09-04] MEDS: NORMAL SALINE 1000 ML 1,000 ML IV PRN (06:43)
[2016-09-04] MEDS: ONDANSETRON HCL INJ/PF 4 MG/2 ML SDV IV PRN (07:15)
[2016-09-04] MEDS ORDERED: PROMETHAZINE HCL 25 MG TABLET PO PRN (09:52)
--- NOTE | 2016-09-04 10:16 | OPERATIVE REPORT E ---
Operative Report NAME: TIFFANIE ZAPATA : 1970 AGE: 46Y DATE OF SURGERY: 09/03/2016 ROOM: 413 PREOPERATIVE DIAGNOSIS: GALLSTONE PANCREATITIS. POSTOPERATIVE DIAGNOSIS: GALLSTONE PANCREATITIS. OPERATION: Laparoscopic Cholecystectomy. SURGEON: DEE DEE CLIFFORD M.D. ANESTHESIA: General. INDICATION: this is a 46-year-old female who complained of abdominal pain. Yesterday she was admitted and noted the elevated lipase. Lipase went down to normal this morning and she remained afebrile and pains had subsided. DESCRIPTION OF PROCEDURE: After adequate general anesthesia, the patient was placed in supine position and the abdomen prepped and draped in the usual sterile fashion. Appropriate timeout was called. Next, an infraumbilical incision was made and the fascia identified and divided and Adilson trocar placed to the fascia into the abdominal cavity. CO2 insufflated to a pressure of 15 mmHg. The trocars were placed 12 mm in the subxiphoid and two 5 mm in the right upper quadrant. The gallbladder was identified and noted to have some adhesions bluntly and lysis was with the use of Harmonic. The gallbladder wall is just slightly thickened by not distended. Cystic duct was then identified, dissected as well as the cystic artery. Cystic duct noted to be just slightly dilated. Clips were placed and divided within the hemoclips. The cystic artery was then clipped and divided with the use of Harmonic shear within her clips and the gallbladder. An intraoperative cholangiogram was then deferred because her liver enzymes and amylase and lipase were all normal and practically asymptomatic. The gallbladder was then dissected off of the liver with the use of Harmonic brandon. The liver bed was dry after completion of procedure. Just a couple of areas with oozing were controlled with the use of Harmonic. Gallbladder was then completely removed and the patient's endobag removed through the umbilical port. No definite palpable stones in the bag were noted. The specimen will be sent to Pathology. The gallbladder bed was then inspected and irrigated and no active bleeding noted. All the trocars were removed and no active bleeding at the trocar sites when visualized with the laparoscope. The Adilson fascial defect was then closed with [id number] suture using 0 Vicryl. Single suture was placed at the xiphoid fascia defect. All the skin incisions were then closed with running subcuticular closure with 4-0 Monocryl. Dermabond dressing was used on top of the incisions. The patient tolerated procedure well and went to recovery in satisfactory condition. Needle, instrument and sponge counts were all correct and estimated blood loss was minimal. DICTATING PHYSICIAN: DEE DEE CLIFFORD M.D. [id number] PHY#: [id number] ID: [id number] JOB#: [id number] ACCT: [id number] cc:DEE DEE CLIFFORD M.D. >
[2016-09-04] MEDS: PANTOPRAZOLE SODIUM 40 MG VIAL IV SCH (10:17)
[2016-09-04] MEDS ORDERED: NORMAL SALINE 1000 ML 1,000 ML IV PRN (10:54)
--- NOTE | 2016-09-04 12:48 | PROGRESS NOTE E ---
Progress Note NAME: TIFFANIE ZAPATA : 1970 AGE: 46Y DATE: 09/04/2016 ROOM: 413 SUBJECTIVE: This is her first postop day post laparoscopic cholecystectomy. She was able to tolerate her clear liquids this morning. OBJECTIVE: Her abdomen is soft, nontender. All her lab is normal with the lipase and LFTs and white count. She remains afebrile. PLAN: Increase her diet and possibly discharge later today from the surgical view point. DICTATING PHYSICIAN: DEE DEE CLIFFORD M.D. [id number] PHY#: [id number] ID: [id number] JOB#: [id number] ACCT: [id number] cc: >
--- NOTE | 2016-09-04 16:03 | PDOC DISCHARGE SUMMARY ---
General - Admit/Disc Date/PCP Admission Date/Primary Care Provider: 09/02/16 13:30 JACKIE MCHUGH MD Discharge Date: 09/04/16 - Discharge Diagnosis (1) Acute gallstone pancreatitis Is this a current diagnosis for this admission?: YesSummary: quickly resolved, seems the stone passed into the duodenum without further complication (2) Cholelithiasis Is this a current diagnosis for this admission?: YesSummary: s/p successful lap choley, see dr flores's notes for details, pathology reveals chronically inflamed gallbladder. - Additional Information Resuscitation Status: Full Code Discharge Diet: As Tolerated - slowly advance as tolerated Discharge Activity: Activity As Tolerated Home Medications: Alprazolam [Xanax] 1 mg PO BIDP PRN 09/02/16 Esomeprazole Mag Trihydrate [Nexium] 40 mg PO DAILY 09/02/16 Naltrexone HCl [Revia] 50 mg PO DAILY 09/02/16 Zolpidem Tartrate [Ambien] 10 mg PO QHS 09/02/16 Oxycodone HCl/Acetaminophen [Percocet 5-325 mg Tablet] 1 tab PO Q4HP PRN #10 tablet 09/04/16 Promethazine HCl [Phenergan 25 mg Tablet] 25 mg PO Q6HP PRN #10 tablet 09/04/16 History of Present Illness Patient complains of: abdominal pain History of Present Illness: TIFFANIE ZAPATA is a 46 year old female presents from home to the ED with sudden onset of sharp, stabbing RUQ radiating into Rt flank and asct'd with N/V/ D, worse with deep breath and certain positions, no alleviating factors until given dilaudid in the ED and is now pain free and resting comfortably. Hospital Course Hospital Course: she was dx'd with cholelithiasis just last week and scheduled to have cholecystectomy 09/26 but describes this as her "eighth" attack since 04/2016 and occuring more frequently and much more intense with each episode and this in spite of making the necessary dietary and lifestyle changes as instructed by surgery. eval 08/24 by u/s shows multiple tiny gallstones, today's exam shows no stones, CBD 4mm but GB and pancreas not well visualized. Her LFTs are minimally elevated, lipase in the 400's and we were asked to admit for further evaluatino and management of presumptive gallstone pancreatitis. Surgery has evaluated and elected to proceed with cholecystectomy Thursday which she tolerated without difficulty or complication. overall she is improved, pain is well controlled, still nauseous but no more vomiting and even that has improved since a large BM early this morning. she is up ambulating, tolerating her liquid diet, hemodynamically stable for her age and condition and is stable for d/c home at this time. she expresses no concerns to me about going home at this time. Rxs provided for short course of analgesics and antiemetics. Physical Exam Vital Signs: Temp Pulse Resp BP Pulse Ox 98.1 F 59 L 16 93/57 L 100 09/04/16 15:30 09/04/16 15:30 09/04/16 15:30 09/04/16 15:30 09/04/16 15:30 Intake & Output 09/03/16 09/04/16 09/05/16 06:59 06:59 06:59 Intake Total 0 3122 Output Total 474 967 6739 Balance -400 2135 -1250 Weight 85.1 kg 89 kg General appearance: PRESENT: no acute distress, obese, well-developed, well- nourished Head exam: PRESENT: atraumatic, normocephalic Eye exam: ABSENT: conjunctival injection, scleral icterus Neck exam: PRESENT: full ROM Respiratory exam: PRESENT: clear to auscultation yenifer. ABSENT: accessory muscle use Cardiovascular exam: PRESENT: RRR. ABSENT: systolic murmur Pulses: PRESENT: normal radial pulses, normal dorsalis pedis pul GI/Abdominal exam: PRESENT: normal bowel sounds, soft, tenderness - appropriate tenderness i nthe area of the trochar sites Musculoskeletal exam: PRESENT: ambulatory, full ROM Neurological exam: PRESENT: alert, awake, oriented to person, oriented to place , oriented to time, oriented to situation Psychiatric exam: PRESENT: appropriate affect, normal mood Skin exam: PRESENT: warm. ABSENT: dry Results Laboratory Results: 09/04/16 04:31 09/03/16 04:22 09/04/16 09/04/16 04:31 04:31 WBC 10.1 RBC 3.88 Hgb 11.9 L Hct 34.8 L MCV 90 MCH 30.7 MCHC 34.2 RDW 13.2 Plt Count 162 Total Bilirubin 0.9 AST 40 H ALT 52 Alkaline Phosphatase 70 Total Protein 6.1 L Albumin 3.3 L Lipase 37.6 Impressions: Abdomen/Pelvis CT 09/02/16 00:00 IMPRESSION: NO SIGNIFICANT OR ACUTE FINDING IN THE ABDOMEN OR PELVIS ON CT SCAN WITH IV CONTRAST. Abdomen Ultrasound 09/02/16 10:00 IMPRESSION: Tiny calculi seen in the gallbladder on 08/24/2016 are no longer identified. Common bile duct distally obscured by right upper quadrant bowel gas. Common bile duct at the lucretia hepatis 4 mm in diameter No definite fluid identified around the pancreatic head. Pancreatic body and tail not well seen. Qualifiers PATEINT BEING DISCHARGED WITH ANY OF THE FOLLOWING DIAGNOSIS?: No VTE patient discharged on overlapping Therapy?: No Reason(s) for not prescribing Overlap Therapy:: Not indicated Plan Discharge Plan: d/c home, f/u with PCP in one week for routine hosp f/u; f/u surgery as instructed. return to the ED for high fever, worsening N/V, bleeding, redness/ pus at surgery sites Time Spent: Greater than 30 Minutes
[2016-09-04 16:41] VITALS: BP 105/66
== END 2016-09-04 17:54 | disposition home health service (06) | DRG 418 ==
LOC: ER 05:54 → EH 13:30 → UNDOADMIN 14:00 → EH 14:00 → 4N 17:35
PROVIDERS: ADMIT Family Medicine; ATTEND Family Medicine
PROC: 0FT44ZZ Resection of Gallbladder, Percutaneous Endoscopic Approach (ICD-10-PCS; principal; 2016-09-03 11:30)
DX: K85.10 Biliary acute pancreatitis without necrosis or infection (principal); K80.12 Calculus of gallbladder with acute and chronic cholecystitis without obstruction; K21.9 Gastro-esophageal reflux disease without esophagitis; Z79.899 Other long term (current) drug therapy
CPT/HCPCS: 36415; 74177; 76705; 790; 80053; 80061; 80076; 81001; 81025; 83690; 83735; 84100; 85025; 85027; 85730; 86140; 88304; 96374; 96375; 99285; J0131; J0690; J1100; J1170; J2250; J2270; J2405; J2704; J3010; J3490; J7030; S0164

== ENCOUNTER 2017-09-10 08:31 | Emergency (ER) | payer BC, OTHER ==
[2017-09-10 08:37] VITALS: BP 114/80
[2017-09-10 09:43] LABS: ABSOLUTE EOSINOPHILS # (AUTO) 0.1 10^3/uL (0.0-0.6); ABSOLUTE LYMPHOCYTES (AUTO) 2.1 10^3/uL (0.5-4.7); ABSOLUTE MONOCYTES (AUTO) 0.4 10^3/uL (0.1-1.4); ABSOLUTE NEUT (AUTO) 3.8 10^3/uL (1.7-8.2); BASOPHILS % (AUTO) 0.5 % (0-2); EOSINOPHILS % (AUTO) 1.4 % (0-6); HEMATOCRIT 42.1 % (36.0-47.0); HEMOGLOBIN 14.4 g/dL (12.0-15.5); LYMPHOCYTES % (AUTO) 32.2 % (13-45); MEAN CORPUSCULAR HEMOGLOBIN 30.2 pg (27.0-33.4); MEAN CORPUSCULAR HGB CONC 34.3 g/dL (32.0-36.0); MEAN CORPUSCULAR VOLUME 88 fl (80-97); PLATELET COUNT 214 10^3/uL (150-450); RED BLOOD COUNT 4.78 10^6/uL (3.72-5.28); RED CELL DISTRIBUTION WIDTH 14.3 % (11.5-14.0); SEGMENTED NEUTROPHILS % (AUTO) 58.9 % (42-78); TOTAL CELLS COUNTED % (AUTO) 100 %; WHITE BLOOD COUNT 6.4 10^3/uL (4.0-10.5)
[2017-09-10 09:50] LABS: APPEARANCE,URINE CLEAR; BILIRUBIN,URINE NEGATIVE (NEGATIVE); COLOR,URINE RED; GLUCOSE, URINE NEGATIVE (NEGATIVE); KETONES,URINE 20 mg/dL (NEGATIVE); LEUKOCYTE ESTERASE,URINE NEGATIVE (NEGATIVE); NITRITE,URINE POSITIVE (NEGATIVE); PROTEIN,URINE 100 mg/dL (NEGATIVE)
[2017-09-10 10:01] LABS: ALANINE AMINOTRANSFERASE 21 U/L (9-52); ALBUMIN 4.1 g/dL (3.5-5.0); ALKALINE PHOSPHATASE 73 U/L (38-126); ANION GAP 12 (5-19); ASPARTATE AMINO TRANSFERASE 22 U/L (14-36); BILIRUBIN,TOTAL 1.9 mg/dL (0.2-1.3); BLOOD UREA NITROGEN 5 mg/dL (7-20); CALCIUM 10.2 mg/dL (8.4-10.2); CARBON DIOXIDE 28 mmol/L (22-30); CHLORIDE 105 mmol/L (98-107); GLUCOSE 78 mg/dL (75-110); POTASSIUM 3.9 mmol/L (3.6-5.0); SODIUM 145.1 mmol/L (137-145); TOTAL PROTEIN 7.3 g/dL (6.3-8.2)
[2017-09-10] MEDS ORDERED: NORMAL SALINE 1000 ML 1,000 ML IV ONE (10:16)
--- NOTE | 2017-09-10 10:25 | ER Document Report ---
ED General - General Chief Complaint: Weakness Stated Complaint: WEAKNESS, DIZZY, STOMACH PAIN Time Seen by Provider: 09/10/17 09:47 Notes: Patient is a 47-year-old female with a gastric sleeve May 27 at [facility] by Dr. Veloz who states she has had intermittent epigastric "discomfort" with little radiation to her chest for around 8 days. She states food makes it worse. She denies radiation. She states a few bouts of diarrhea that has been present since the surgery in May. She denies any vomiting or fevers. She denies any other aggravating or relieving factors. She denies any calf pain or leg swelling. She denies any recent trips or travel. TRAVEL OUTSIDE OF THE [place] IN LAST 30 DAYS: No - HPI Onset: Other - See above Onset/Duration: Gradual Quality of pain: Achy Severity: Mild Pain Level: Denies Associated symptoms: Other - See above Exacerbated by: Denies Relieved by: Denies Similar symptoms previously: No Recently seen / treated by doctor: No - Related Data Allergies/Adverse Reactions: No Known Allergies Allergy (Verified 09/10/17 08:32) Past Medical History - General Information source: Patient - Social History Smoking Status: Never Smoker Cigarette use (# per day): No Chew tobacco use (# tins/day): No Smoking Education Provided: No Frequency of alcohol use: None Drug Abuse: None Family History: Reviewed & Not Pertinent Patient has suicidal ideation: No Patient has homicidal ideation: No Renal/ Medical History: Denies: Hx Peritoneal Dialysis GI Medical History: Reports: Hx Gastroesophageal Reflux Disease Past Surgical History: Reports: Hx Abdominal Surgery - gastric sleeve, Hx Section, Hx Cholecystectomy, Hx Tubal Ligation - Immunizations Hx Diphtheria, Pertussis, Tetanus Vaccination: Yes Review of Systems - Review of Systems Constitutional: denies: Fever EENT: denies: Eye discharge, Nose discharge Cardiovascular: denies: Chest pain Respiratory: denies: Short of breath Gastrointestinal: denies: Vomiting Genitourinary: denies: Dysuria Musculoskeletal: denies: Leg swelling Skin: Other - no hives. denies: Rash Neurological/Psychological: Other - no slurred speech -: Yes All other systems reviewed and negative Physical Exam - Vital signs Vitals: Temp Pulse Resp BP Pulse Ox 97.6 F 89 14 114/80 96 09/10/17 08:35 09/10/17 08:35 09/10/17 08:35 09/10/17 08:35 09/10/17 08:35 Notes: Reviewed vital signs and nursing note as charted by RN. CONSTITUTIONAL: Alert and oriented and responds appropriately to questions. Well -appearing; well-nourished HEAD: Normocephalic; atraumatic EYES: Sclerae non-icteric ENT: Normal nose; no rhinorrhea; moist mucous membranes NECK: Supple without meningismus; non-tender CARD: Regular rate and rhythm; no murmurs RESP: Normal chest excursion without splinting or tachypnea; breath sounds clear and equal bilaterally ABD/GI: Normal bowel sounds; non-distended; soft, non-tender to deep palpation currently of all 4 quadrants of the abdomen including the epigastric region BACK: The back appears normal and is non-tender to palpation, there is no CVA tenderness EXT: Normal ROM in all joints; non-tender to palpation; no edema SKIN: Normal color for age and race; warm; no acute lesions noted NEURO: Moves all extremities equally; Motor and sensory function intact PSYCH: The patient's mood and manner are appropriate. Grooming and personal hygiene are appropriate. Course - Re-evaluation Re-evalutation: 09/10/17 10:28 Given the above history and physical examination we will order a lipase, liver panel, basic labs, and EKG and troponin, as well as a CT scan of the abdomen and pelvis. I would like to evaluate for possible pancreatitis, other intra- abdominal pathology, gastric sleeve pathology, or cardiac equivalent. Given the recent gastric sleeve surgery, worse with eating food, without fevers or vomiting, I do believe this could be gastritis or gastric ulcer in nature. 09/10/17 10:40 EKG shows a heart rate of 73, normal sinus rhythm, normal axis, no ST elevation or depression, inverted T waves in leads III, aVF, V2 and V3 09/10/17 12:03 Labs as recorded. Total bilirubin 1.9. Direct is 0. Normal AST ALT, lipase, and alk phos. Normal white blood cell count. GI cocktail has improved the pain. CT scan of the abdomen and pelvis shows no obvious acute findings. Normal troponin. Patient does not have a gallbladder. 09/10/17 12:05 Urinalysis shows a positive nitrite urine. Urine culture has been sent. Rocephin 1 g has been provided. Patient was diagnosed with urinary tract infection 2 days ago. She is currently on Macrobid with urine culture pending at the primary care physician. I will provide the Rocephin with 1 L of fluid. Patient states the pain is much improved. Patient will be discharged home with strict return precautions. - Vital Signs Vital signs: Temp Pulse Resp BP Pulse Ox 97.6 F 89 14 114/80 96 09/10/17 08:35 09/10/17 08:35 09/10/17 08:35 09/10/17 08:35 09/10/17 08:35 - Laboratory Result Diagrams: 09/10/17 09:27 09/10/17 09:27 Laboratory results interpreted by me: 09/10/17 09/10/17 09/10/17 09:27 09:27 09:27 RDW 14.3 H Sodium 145.1 H BUN 5 L Total Bilirubin 1.9 H Urine Protein 100 H Urine Ketones 20 H Urine Nitrite POSITIVE H Urine Urobilinogen 4.0 H Discharge - Discharge Clinical Impression: Epigastric discomfort UTI (urinary tract infection) Qualifiers: Urinary tract infection type: site unspecified Hematuria presence: without hematuria Qualified Code(s): N39.0 - Urinary tract infection, site not specified Disposition: HOME, SELF-CARE Additional Instructions: Come back immediately with any return or worsening of pain, fevers or vomiting, shortness of breath or chest discomfort, or any other acute problems. Please make sure that she follow-up with your primary care physician regarding the urine culture to make sure she is treating appropriately. Please follow-up with your gastroenterology physician for reassessment. You can start taking [id number] Prilosec once daily as we have discussed. Referrals: JACKIE MCHUGH MD [Primary Care Provider] - Follow up as needed
[2017-09-10 10:30] LABS: LIPASE 81.6 U/L (23-300)
[2017-09-10] MEDS ORDERED: METOCLOPRAMIDE HCL ORAL SOLN 10 MG/10 ML UDCUP PO ONE (10:32)
[2017-09-10] MEDS ORDERED: LIDOCAINE 2% VISCOUS SOLN 20 ML UDCUP PO ONE (10:32)
[2017-09-10] MEDS ORDERED: MAG HYDROX/AL HYDROX/SIMETH SUSP 30 ML UDCUP PO ONE (10:32)
--- NOTE | 2017-09-10 11:43 | EKG REPORT ---
SEVERITY:- ABNORMAL ECG - SINUS RHYTHM CONSIDER ANTERIOR INFARCT NONSPECIFIC T ABNORMALITIES, INFERIOR LEADS : Confirmed by: Cecilia Amato MD 10-Sep-2017 11:42:04
--- NOTE | 2017-09-10 11:52 | RADIOLOGY REPORT (SQ) ---
EXAM DESCRIPTION: CT ABD/PELVIS WITH IV ONLY COMPLETED DATE/TIME: 09/10/2017 11:39 am REASON FOR STUDY: 21, gastric sleeve with some mild epigastric pain COMPARISON: 09/02/2016. TECHNIQUE: CT scan of the abdomen and pelvis performed using helical scanning technique with dynamic intravenous contrast injection. No oral contrast. Images reviewed with lung, soft tissue, and bone windows. Reconstructed coronal and sagittal MPR images reviewed. Delayed images for evaluation of the urinary system also acquired. All images stored on PACS. All CT scanners at this facility use dose modulation, iterative reconstruction, and/or weight based d osing when appropriate to reduce radiation dose to as low as reasonably achievable (ALARA). [facility]: Dose Right [facility]: CareDose [facility]: Dose Right [facility]: Teradose 4D [facility]: [employer] CONTRAST TYPE AND DOSE: contrast/concentration: Isovue 370.00 mg/ml; Total Contrast Delivered: 76.0 ml; Total Saline Delivered: 67.0 ml RENAL FUNCTION: BUN 5 creatinine 0.54. RADIATION DOSE: CT Rad equipment meets quality standard of care and radiation dose reduction techniq ues were employed. CTDIvol: 11.7 - 15.3 mGy. DLP: 1481 mGy-cm.. LIMITATIONS: None. FINDINGS: LOWER CHEST: No significant findings. No nodules or infiltrates. LIVER: Normal size. No masses. No dilated ducts. SPLEEN: Normal size. No focal lesions. PANCREAS: No masses. No significant calcifications. No adjacent inflammation or peripancreatic fluid collections. Pancreatic duct not dilated. GALLBLADDER: Surgically absent. ADRENAL GLANDS: No significant masses or asymmetry. RIGHT KIDNEY AND URETER: No solid masses. No significant calcifications. No hydronephrosis or hyd roureter. LEFT KIDNEY AND URETER: No solid masses. No significant calcifications. No hydronephrosis or hydr oureter. AORTA AND VESSELS: No aneurysm. No dissection. Renal arteries, SMA, celiac without stenosis. RETROPERITONEUM: No retroperitoneal adenopathy, hemorrhage or masses. BOWEL AND PERITONEAL CAVITY: No masses or inflammatory changes. No free fluid or peritoneal masses. APPENDIX: Normal. PELVIS: No mass. No free fluid. Normal bladder. ABDOMINAL WALL: No masses. No hernias. BONES: No significant or acute findings. OTHER: No other significant finding. IMPRESSION: NO SIGNIFICANT OR ACUTE FINDING IN THE ABDOMEN OR PELVIS ON CT SCAN WITH IV CONTRAST. TECHNICAL DOCUMENTATION: JOB ID: [id number] Quality ID # [id number]: Final reports with documentation of one or more dose reduction techniques (e.g., Au tomated exposure control, adjustment of the mA and/or kV according to patient size, use of iterative reconstruction technique) 2010 [employer]- All Rights Reserved Reading location - IP/workstation name: [email or web address]
[2017-09-10] MEDS ORDERED: CEFTRIAXONE RTU 1 GM/D5W 50 ML IV ONE (12:05)
== END 2017-09-10 13:58 | disposition home or self-care (01) ==
LOC: ER 08:31
DX: N39.0 Urinary tract infection, site not specified (principal); R10.13 Epigastric pain; R53.1 Weakness; R42 Dizziness and giddiness; R19.7 Diarrhea, unspecified
CPT/HCPCS: 93005; 99285; 96361; 96365; 36415; 83690; 85025; 81025; 80053; 81001; 84484; 74177; 93010; J3490; J7030; J0696

== ENCOUNTER → 2019-03-28 | Outpatient (CLI) | payer BC ==
--- NOTE | 2019-03-28 15:13 | WOMENS IMAGING REPORT ---
EXAM DESCRIPTION: 3D SCREENING MAMMO BILAT COMPLETED DATE/TIME: 03/28/2019 2:52 pm REASON FOR STUDY: ROUTINE SCREENING MAMMOGRAM Z1231 Z12.31 ENCNTR SCREEN MAMMOGRAM FOR MALIGNANT NE OPLASM OF ROSHNI COMPARISON: 2014 EXAM PARAMETERS: Views: Standard craniocaudal and mediolateral oblique views of each breast recorded using digital acquisition and breast tomosynthesis. Read with the assistance of CAD. .[facility] - R2 [employer] Operator Helper Version 9.2 LIMITATIONS: None. FINDINGS: No suspicious masses, suspicious calcifications or architectural distortion. No areas of c oncern. IMPRESSION: NEGATIVE MAMMOGRAM. BIRADS 1. BREAST DENSITY: b. There are scattered areas of fibroglandular density. BIRAD: ASSESSMENT: 1 NEGATIVE RECOMMENDATION: ROUTINE SCREENING Please continue yearly bilateral screening mammography/tomosynthesis in March 2020 COMMENT: The patient has been notified of the results by letter per MQSA requirements. Additional no tification policies are in place for contacting patient with suspicious or incomplete findings. Quality ID #[id number]: The [employer] recommends an annual screening mammogram for women aged 40 years or over. This facility utilizes a reminder system to ensure that all patients receive reminder letters, and/or direct phone calls for appointments. This includes reminders for routine scr eening mammograms, diagnostic mammograms, or other Breast Imaging Interventions when appropriate. Th is patient will be placed in the appropriate reminder system. TECHNICAL DOCUMENTATION: FINDING NUMBER: (1) ASSESSMENT: (1) JOB ID: [id number] [employer]- All Rights Reserved Reading location - IP/workstation name: [email or web address]
== END ==
LOC: WI 14:20
PROVIDERS: ATTEND Nurse Practitioner Primary Care
DX: Z12.31 Encounter for screening mammogram for malignant neoplasm of breast (principal)
CPT/HCPCS: 77063; 77067